=== PATIENT | male | born 1955 | race African-American/Black ===

== ENCOUNTER 2022-01-14 07:20 | Outpatient (CLI) | payer MEDICARE, MEDICAID ==
[2022-01-14 08:27] LABS: Hemoglobin 14.8 g/dL (13.5-17.5); Mean Corpuscular HGB CONC 33.1 g/dL (32.0-36.0); Mean Corpuscular Hemoglobin 31.6 pg (27.0-33.0); Mean Corpuscular Volume 95.3 fl (81.2-95.1); Mean Platelet Volume 9.3 fl (7.4-10.4); Platelet Count 185 10x3/uL (150-450); Red Blood Cell (RBC) Count 4.69 10x6/uL (4.32-5.72); White Blood Cell (WBC) Count 5.3 10x3/uL (3.5-10.5)
[2022-01-14 08:46] LABS: Anion Gap 12 mmol/L (10-20); BUN (Urea Nitrogen) 11 mg/dL (8.4-25.7); Calc. Creatinine Clearance 0 mL/min (70-130); Calcium 9.6 mg/dL (7.8-10.44); Carbon Dioxide 28 mmol/L (23-31); Chloride 104 mmol/L (98-107); Glucose 93 mg/dL (80-115); Potassium 3.8 mmol/L (3.5-5.1); Sodium 140 mmol/L (136-145)
[2022-01-14 19:25] LABS: SARS-CoV-2 PCR by NAA Not Detected (NotDetected)
== END 2022-01-14 07:21 | disposition home or self-care (01) ==
LOC: CSHLAB 07:20
PROVIDERS: ATTEND Otolaryngology Otolaryngic Allergy
DX: Z01.812 Encounter for preprocedural laboratory examination (principal); Z20.822 Contact with and (suspected) exposure to COVID-19; R59.0 Localized enlarged lymph nodes
CPT/HCPCS: 80048; 85027; U0003; U0005

== ENCOUNTER 2022-01-19 06:34 | Day surgery (SDC) | payer MEDICARE, MEDICAID ==
[2022-01-18 09:10] VITALS: BMI 21.7
[2022-01-19] MEDS ORDERED: SUGAMMADEX SODIUM 200 MG/2 ML VIAL ONE (06:53)
[2022-01-19] MEDS ORDERED: Lidocaine 1% MPF 2 ML VIAL ONE (09:03)
[2022-01-19] MEDS ORDERED: EPINEPHrine 1 MG/ML AMP ONE (10:02)
[2022-01-19] MEDS ORDERED: Midazolam HCl 2 mg/2 ml Vial ONE (10:05)
[2022-01-19] MEDS ORDERED: Fentanyl 100 MCG/2 ML VIAL ONE (10:05)
[2022-01-19] MEDS ORDERED: PROPOFOL 20 ML ONE (10:05)
[2022-01-19] MEDS ORDERED: Dexamethasone 20 MG/5 ML VIAL ONE (10:06)
[2022-01-19] MEDS ORDERED: Ondansetron PF 4 MG/2 ML Vial ONE (10:06)
[2022-01-19] MEDS ORDERED: Rocuronium Bromide 10 MG/ML (10ML VIAL) ONE (10:06)
[2022-01-19] MEDS ORDERED: CEFAZOLIN 1 GM VIAL ONE (10:11)
[2022-01-19] MEDS ORDERED: Lidocaine 1% w/Epinephrine 1:100K 20 ML VIAL ONE (10:21)
== END 2022-01-19 12:30 | disposition home or self-care (01) ==
LOC: CSHSDC 06:34
PROVIDERS: ATTEND Otolaryngology Otolaryngic Allergy
PROC: 07B20ZX Excision of Left Neck Lymphatic, Open Approach, Diagnostic (ICD-10-PCS; principal; 2022-01-19)
DX: R59.1 Generalized enlarged lymph nodes (principal); I10 Essential (primary) hypertension; Z88.8 Allergy status to other drugs, medicaments and biological substances
CPT/HCPCS: 88184; 88305; 88312; 88331; 88333; 88341; 88342; J0171; J0690; J1100; J2250; J2405; J2704; J3010